=== PATIENT | male | born 1985 | race Hispanic/Latino ===

== ENCOUNTER 2021-03-10 18:39 | Emergency (ER) | payer OTHER ==
[~2021-03-10] VITALS: Ht 188 cm; Wt 126.1 kg
[2021-03-10] MEDS ORDERED: PREDNISONE20 MG PO (19:59)
[2021-03-10] MEDS ORDERED: ACETAMINOPHEN500 MG PO (19:59)
[2021-03-10] MEDS ORDERED: IBUPROFEN IB200 MG PO (19:59)
[2021-03-10] MEDS ORDERED: KETOROLAC TROMETHAMINE 30 MG/ML VIAL IV ONE (20:00)
[2021-03-10] MEDS ORDERED: DEXAMETHASONE SOD PHOS INJ 4 MG/ML VIAL IV ONE (20:15)
[2021-03-10] MEDS ORDERED: KETOROLAC TROMETHAMINE 30 MG/ML VIAL ONE (20:16)
[2021-03-10] MEDS ORDERED: DEXAMETHASONE SOD PHOS INJ 4 MG/ML VIAL ONE (20:16)
== END 2021-03-10 21:09 | disposition home or self-care (01) ==
LOC: FSED 18:57
DX: R07.89 Other chest pain (principal)
CPT/HCPCS: 71046; 80053; 82553; 84484; 85025; 93005; 99284; J1100; J1885

== ENCOUNTER 2021-06-14 23:06 | Emergency (ER) | payer OTHER ==
[~2021-06-14] VITALS: Ht 188 cm; Wt 127.5 kg
[~2021-06-14 23:06] MED LIST: ACETAMINOPHEN500 MG PO; IBUPROFEN IB200 MG PO; PREDNISONE20 MG PO
[2021-06-14] MEDS ORDERED: IBUPROFEN 600 MG TAB PO STA (23:29)
[2021-06-14] MEDS ORDERED: IBUPROFEN600 MG PO (23:30)
[2021-06-14] MEDS ORDERED: CYCLOBENZAPRINE10 MG PO (23:31)
[2021-06-14 23:43] VITALS: BP 153/80
[2021-06-14] MEDS ORDERED: IBUPROFEN 600 MG TAB ONE (23:45)
== END 2021-06-14 23:43 | disposition home or self-care (01) ==
LOC: FSED 23:19
DX: S13.4XXA Sprain of ligaments of cervical spine, initial encounter (principal); S16.1XXA Strain of muscle, fascia and tendon at neck level, initial encounter; S39.012A Strain of muscle, fascia and tendon of lower back, initial encounter; V53.5XXA Driver of pick-up truck or van injured in collision with car, pick-up truck or van in traffic accident, initial encounter; Y92.414 Local residential or business street as the place of occurrence of the external cause
CPT/HCPCS: 99283